=== PATIENT | female | born 1955 | race Two or more races ===

== ENCOUNTER 2017-07-22 12:33 | Day surgery (SDC) | payer OTHER ==
[2017-07-22] MEDS ORDERED: MIDAZOLAM 1 MG/ML 2 ML INJ (14:08)
[2017-07-22] MEDS ORDERED: PROPOFOL 20 ML (14:08)
== END 2017-07-22 16:04 | disposition home or self-care (01) ==
LOC: GIL 12:33
DX: K29.30 Chronic superficial gastritis without bleeding (principal)
CPT/HCPCS: 43239; 88305; 88312; 88313